=== PATIENT | male | born 1985 | race African-American/Black ===

== ENCOUNTER 2024-12-23 22:15 | Emergency (ER) | payer MEDICAID ==
[~2024-12-23] VITALS: Ht 182.9 cm; Wt 87.0 kg
[2024-12-23 22:22] VITALS: O2SAT 99
[2024-12-23] MEDS ORDERED: LIDOCAINE HCL 1% 20ML VIAL INFIL ONE (22:45)
[2024-12-23 22:49] VITALS: TEMP 37.5
[2024-12-23] MEDS: KETOROLAC 30MG/ML VIAL IM ONE (22:58)
[2024-12-23] MEDS: TETANUS, DIPHTHERIA, PERTUSSIS VAC/PF 0.5ML (>10YR OLD) IM ONE (22:59)
[2024-12-24] MEDS ORDERED: CEPH500C2 MT (02:27)
[2024-12-24] MEDS ORDERED: BACITRACIN ZINC OINT UDPKT TOP ONE (03:15)
[2024-12-24 03:17] VITALS: BP 135/88; PULSE 68; RESP 18; O2SAT 98
== END 2024-12-24 03:20 | disposition home or self-care (01) ==
LOC: ER 22:15
DX: S61.412A Laceration without foreign body of left hand, initial encounter (principal); E11.9 Type 2 diabetes mellitus without complications; G89.11 Acute pain due to trauma; X99.1XXA Assault by knife, initial encounter; Y93.89 Activity, other specified; Y92.000 Kitchen of unspecified non-institutional (private) residence as the place of occurrence of the external cause; Y99.8 Other external cause status
CPT/HCPCS: 73130; 90715; 12001; 90471; 96372; 99284; J1885; Z7610